=== PATIENT | female | born 1965 | race Caucasian/White ===

== ENCOUNTER 2016-12-10 11:27 | Inpatient (IN) | payer MEDICARE, OTHER ==
[~2016-12-10] VITALS: Ht 172.7 cm; Wt 118.8 kg
[2016-12-10 14:25] LABS: HEMOGLOBIN 13.3 gm/dl (12.3-15.3); RED BLOOD COUNT 4.4 M/UL (4.00-5.10); WHITE BLOOD COUNT 13.9 K/UL (4.5-11.0)
[2016-12-10] MEDS ORDERED: NOVOLIN 70100 UNIT/1 SQ ×2 (23:58→23:59)
[2016-12-10] MEDS ORDERED: LEVEMIR100 UNIT/1 SQ (23:59)
[2016-12-11] MEDS ORDERED: CRESTOR10 MG PO
[2016-12-11] MEDS ORDERED: NEURONTIN 300300 MG PO
[2016-12-11] MEDS ORDERED: JARDIANCE10 MG PO
[2016-12-11] MEDS ORDERED: IBUPROFEN800 MG PO (00:01)
[2016-12-12 05:16] LABS: BUN/CREATININE RATIO 19 (0-10)
[2016-12-13 07:12] LABS: WHITE BLOOD COUNT 11.7 K/UL (4.5-11.0)
[2016-12-13 07:14] LABS: RED BLOOD COUNT 3.71 M/UL (4.00-5.10)
[2016-12-14 05:35] LABS: HEMOGLOBIN 10.4 gm/dl (12.3-15.3); RED BLOOD COUNT 3.49 M/UL (4.00-5.10); WHITE BLOOD COUNT 10.7 K/UL (4.5-11.0)
[2016-12-16 06:58] LABS: HEMOGLOBIN 10.3 gm/dl (12.3-15.3); RED BLOOD COUNT 3.51 M/UL (4.00-5.10); WHITE BLOOD COUNT 12.2 K/UL (4.5-11.0)
[2016-12-20 05:35] LABS: HEMOGLOBIN 10.1 gm/dl (12.3-15.3); RED BLOOD COUNT 3.49 M/UL (4.00-5.10); WHITE BLOOD COUNT 11.9 K/UL (4.5-11.0)
== END 2016-12-20 14:18 | DRG 464 ==
LOC: ER1 11:27 → ZEROF 21:00 → M/S 21:00
PROVIDERS: Family Medicine; Internal Medicine; Legal Medicine; Physician Assistant Medical; Surgery; ADMIT Internal Medicine
PROC: 0JB80ZZ Excision of Abdomen Subcutaneous Tissue and Fascia, Open Approach (ICD-10-PCS; principal; 2016-12-11 17:45)
PROC: 0JB80ZZ Excision of Abdomen Subcutaneous Tissue and Fascia, Open Approach (ICD-10-PCS; 2016-12-12)
DX: M72.6 Necrotizing fasciitis (principal); L03.311 Cellulitis of abdominal wall; L02.211 Cutaneous abscess of abdominal wall; E11.65 Type 2 diabetes mellitus with hyperglycemia; E66.01 Morbid (severe) obesity due to excess calories; J20.9 Acute bronchitis, unspecified; D50.9 Iron deficiency anemia, unspecified; E87.6 Hypokalemia; M79.3 Panniculitis, unspecified; E78.5 Hyperlipidemia, unspecified; K40.90 Unilateral inguinal hernia, without obstruction or gangrene, not specified as recurrent; R31.9 Hematuria, unspecified; F17.210 Nicotine dependence, cigarettes, uncomplicated; Z68.39 Body mass index [BMI] 39.0-39.9, adult; Z79.1 Long term (current) use of non-steroidal anti-inflammatories (NSAID); Z79.4 Long term (current) use of insulin; Z79.899 Other long term (current) drug therapy; Z88.8 Allergy status to other drugs, medicaments and biological substances; Z90.49 Acquired absence of other specified parts of digestive tract; Z98.890 Other specified postprocedural states; Z82.49 Family history of ischemic heart disease and other diseases of the circulatory system
CPT/HCPCS: 36415; 71010; 80048; 80053; 80202; 81001; 82009; 82800; 82962; 83036; 83605; 83690; 85025; 85027; 85610; 85730; 87040; 87070; 87086; 87205; 94640; 94664; 94760; 96374; 96375; 96376; 99283; J0696; J1650; J1815; J1885; J2250; J2270; J2405; J2543; J3370; J7030; J7040; J7050; J7070; J7120

== ENCOUNTER → 2021-06-20 | Outpatient (CLI) | payer MEDICARE, OTHER ==
[~2021-06-20] MED LIST: CRESTOR10 MG PO; IBUPROFEN800 MG PO; JARDIANCE10 MG PO; LEVEMIR100 UNIT/1 SQ; NEURONTIN 300300 MG PO; NOVOLIN 70100 UNIT/1 SQ
[2021-06-20 08:52] LABS: BUN/CREATININE RATIO 21 (0-10)
== END ==
LOC: LAB 07:41
PROVIDERS: Emergency Medicine
DX: E11.9 Type 2 diabetes mellitus without complications (principal); E03.9 Hypothyroidism, unspecified; Z79.899 Other long term (current) drug therapy
CPT/HCPCS: 36415; 80053; 80061; 83036; 84443

== ENCOUNTER → 2022-01-19 | Outpatient (CLI) | payer MEDICARE, OTHER | LOC: CT 07:36 | DX: R22.0 Localized swelling, mass and lump, head (principal); K11.8 Other diseases of salivary glands | CPT/HCPCS: 36415; 70491; 82565; 84520; Q9967 ==

== ENCOUNTER → 2022-04-10 | Outpatient (CLI) | payer MEDICARE, OTHER | LOC: US 09:44 | DX: K11.8 Other diseases of salivary glands (principal) | CPT/HCPCS: 36415 ==

== ENCOUNTER → 2022-04-24 | Outpatient (CLI) | payer MEDICARE, OTHER ==
[2022-04-24 12:05] LABS: BUN/CREATININE RATIO 29 (0-10)
== END ==
LOC: LAB 10:54
PROVIDERS: Emergency Medicine
DX: E11.9 Type 2 diabetes mellitus without complications (principal); Z79.899 Other long term (current) drug therapy
CPT/HCPCS: 36415; 80053; 80061; 83036; 84439; 84443